=== PATIENT | female | born 1940 | race Caucasian/White ===

== ENCOUNTER 2018-10-05 14:13 | Emergency (ER) | payer MEDICARE ==
[2018-10-05] MEDS ORDERED: DIPH/PERTUSS(ACELL)/TETANUS VAC/PF 0.5 ML SYR (>=10YO) IM ONE (14:43)
--- NOTE | 2018-10-05 14:45 | ER Document Report ---
ED Medical Screen (RME) - General Chief Complaint: Fall Stated Complaint: FALL/HEAD INJURY Time Seen by Provider: 10/05/18 14:43 Information source: Patient, Relative Notes: Patient states she was attempting to step into her home carrying a laundry basket and may have tripped and fell. Patient is uncertain of the exact mechanism as she has an abrasion on the anterior aspect of her right knee but has a bump to the occipital scalp area. Patient complains of mild headache dizziness upper back pain and some right knee tenderness. Patient denies any chest pain, loss of consciousness, nausea or vomiting. I have greeted and performed a rapid initial assessment of this patient. A comprehensive ED assessment and evaluation of the patient, analysis of test results and completion of the medical decision making process will be conducted by additional ED providers. - Related Data Allergies/Adverse Reactions: ciprofloxacin [From Cipro] Allergy (Verified 10/05/18 14:28) mycins Allergy (Uncoded 10/05/18 14:28) Past Medical History - Social History Frequency of alcohol use: Occasional Drug Abuse: None - Past Medical History Cardiac Medical History: Reports: Hx Hypercholesterolemia GI Medical History: Reports: Hx Gastroesophageal Reflux Disease Past Surgical History: Reports: Hx Appendectomy, Hx Cardiac Surgery - pacemaker, valve replacement, Hx Cholecystectomy, Hx Hysterectomy, Hx Orthopedic Surgery - L knee arthroscopy, Hx Tonsillectomy Physical Exam - Vital signs Vitals: Temp Pulse Resp BP Pulse Ox 97.9 F 81 15 138/56 H 95 10/05/18 14:19 10/05/18 14:19 10/05/18 14:19 10/05/18 14:19 10/05/18 14:19 - General Notes: Tenderness to occipital scalp, upper thoracic midline tenderness, no step-off or deformity, abrasion overlying the anterior aspect of right knee Course - Vital Signs Vital signs: Temp Pulse Resp BP Pulse Ox 97.9 F 81 15 138/56 H 95 10/05/18 14:19 10/05/18 14:19 10/05/18 14:19 10/05/18 14:19 10/05/18 14:19
--- NOTE | 2018-10-05 15:31 | RADIOLOGY REPORT (SQ) ---
EXAM DESCRIPTION: CT CERVICAL SPINE WITHOUT COMPLETED DATE/TIME: 10/05/2018 3:15 pm REASON FOR STUDY: fall COMPARISON: None. TECHNIQUE: Axial images acquired through the cervical spine without intravenous contrast. Images re viewed with lung, soft tissue and bone windows. Reconstructed coronal and sagittal MPR images review ed. Images stored on PACS. All CT scanners at this facility use dose modulation, iterative reconstruction, and/or weight based d osing when appropriate to reduce radiation dose to as low as reasonably achievable (ALARA). [facility]: Dose Right [facility]: CareDose [facility]: Dose Right [facility]: Teradose 4D [facility]: [employer] RADIATION DOSE: CT Rad equipment meets quality standard of care and radiation dose reduction techniq ues were employed. CTDIvol: 18.2 mGy. DLP: 410 mGy-cm. mGy. LIMITATIONS: None. FINDINGS: ALIGNMENT: Anatomic. MINERALIZATION: Normal. VERTEBRAL BODIES: No fractures or dislocation. DISCS: Multilevel disc space narrowing with osteophytes. FACETS, LATERAL MASSES, POSTERIOR ELEMENTS: Facet arthropathy. No fractures. No dislocation. No ac sandeep findings. HARDWARE: None in the spine. VISUALIZED RIBS: No fractures. LUNG APICES AND SOFT TISSUES: No significant or acute findings. OTHER: No other significant finding. IMPRESSION: CHRONIC DEGENERATIVE CHANGES. NO ACUTE FINDINGS. TECHNICAL DOCUMENTATION: JOB ID: [id number] Quality ID # [id number]: Final reports with documentation of one or more dose reduction techniques (e.g., Au tomated exposure control, adjustment of the mA and/or kV according to patient size, use of iterative reconstruction technique) 2010 [employer]- All Rights Reserved Reading location - IP/workstation name: [email or web address]
--- NOTE | 2018-10-05 15:32 | RADIOLOGY REPORT (SQ) ---
EXAM DESCRIPTION: CT HEAD WITHOUT COMPLETED DATE/TIME: 10/05/2018 3:16 pm REASON FOR STUDY: fall COMPARISON: None. TECHNIQUE: Axial images acquired through the brain without intravenous contrast. Images reviewed wi th bone, brain and subdural windows. Additional sagittal and coronal reconstructions were generated. Images stored on PACS. All CT scanners at this facility use dose modulation, iterative reconstruction, and/or weight based d osing when appropriate to reduce radiation dose to as low as reasonably achievable (ALARA). [facility]: Dose Right [facility]: CareDose [facility]: Dose Right [facility]: Teradose 4D [facility]: [employer] RADIATION DOSE: CT Rad equipment meets quality standard of care and radiation dose reduction techniq ues were employed. CTDIvol: 53.2 mGy. DLP: 964 mGy-cm.mGy. LIMITATIONS: None. FINDINGS: VENTRICLES: Prominent. CEREBRUM: No masses. No hemorrhage. No midline shift. Areas of low density in the white matter mos t likely due to chronic micro-vascular ischemic change. No evidence for acute infarction. CEREBELLUM: No masses. No hemorrhage. No alteration of density. No evidence for acute infarction. EXTRAAXIAL SPACES: Age-related involutional change. No fluid collections. No masses. ORBITS AND GLOBE: No intra- or extraconal masses. Normal contour of globe without masses. CALVARIUM: No fracture. PARANASAL SINUSES: No fluid or mucosal thickening. SOFT TISSUES: No mass or hematoma. OTHER: No other significant finding. IMPRESSION: CHRONIC CHANGES OF ATROPHY AND MICROVASCULAR ISCHEMIA. NO ACUTE PROCESS. EVIDENCE OF ACUTE STROKE: NO. TECHNICAL DOCUMENTATION: JOB ID: [id number] Quality ID # [id number]: Final reports with documentation of one or more dose reduction techniques (e.g., Au tomated exposure control, adjustment of the mA and/or kV according to patient size, use of iterative reconstruction technique) 2010 [email or web address]- All Rights Reserved Reading location - IP/workstation name: [email or web address]
--- NOTE | 2018-10-05 15:32 | RADIOLOGY REPORT (SQ) ---
EXAM DESCRIPTION: T SPINE AP/LAT COMPLETED DATE/TIME: 10/05/2018 3:23 pm REASON FOR STUDY: fall COMPARISON: None. NUMBER OF VIEWS: Two views. TECHNIQUE: AP and lateral radiographic images acquired of the thoracic spine. LIMITATIONS: None. FINDINGS: MINERALIZATION: Normal. ALIGNMENT: Normal. No scoliosis. VERTEBRAE: No fracture or bone lesion. Maintained height, normal segmentation. DISCS: Multilevel disc space narrowing with osteophytes. HARDWARE: None in the spine. MEDIASTINUM AND SOFT TISSUES: Normal heart size and aortic contour. No soft tissue abnormality. VISUALIZED LUNG KENNEY: Clear. OTHER: No other significant finding. IMPRESSION: SPONDYLOSIS WITHOUT BONE LESION OR FRACTURE. TECHNICAL DOCUMENTATION: JOB ID: [id number] [employer]- All Rights Reserved Reading location - IP/workstation name: [email or web address]
--- NOTE | 2018-10-05 15:33 | RADIOLOGY REPORT (SQ) ---
EXAM DESCRIPTION: KNEE RIGHT 4 VIEWS COMPLETED DATE/TIME: 10/05/2018 3:23 pm REASON FOR STUDY: fall COMPARISON: None. NUMBER OF VIEWS: Four views. TECHNIQUE: AP, lateral, and both oblique radiographic images acquired of the right knee. LIMITATIONS: None. FINDINGS: MINERALIZATION: Normal. BONES: No acute fracture or dislocation. Mild medial joint space narrowing with small osteophytes. Spurring on the patella. No worrisome bone lesions. JOINT: No effusion. SOFT TISSUES: No soft tissue swelling. No radio-opaque foreign body. OTHER: No other significant finding. IMPRESSION: MILD DEGENERATIVE CHANGES. NO RADIOGRAPHIC EVIDENCE OF ACUTE INJURY. TECHNICAL DOCUMENTATION: JOB ID: [id number] [employer]- All Rights Reserved Reading location - IP/workstation name: [email or web address]
--- NOTE | 2018-10-05 16:04 | ER Document Report ---
ED General - General Chief Complaint: Fall Stated Complaint: FALL/HEAD INJURY Time Seen by Provider: 10/05/18 14:43 Primary Care Provider: JANI ORTIZ PA-C [Primary Care Provider] - Follow up as needed Notes: 77-year-old female presents emergency department complaint of a mechanical trip and fall at home. Patient was stepping up onto a step with 1 to 2 feet high, caught her flip-flop and fell backwards. Complains of some pain to the back of her head and some abrasion to the front of her right knee. Denies loss of consciousness, neck pain, back pain, numbness, tingling or weakness. Does not take any blood thinners. She does have a history of chronically herniated disc L5-S1 that is unchanged symptomatically at this point. Denies any nausea, vomiting, diarrhea. - Related Data Allergies/Adverse Reactions: ciprofloxacin [From Cipro] Allergy (Verified 10/05/18 14:28) mycins Allergy (Uncoded 10/05/18 14:28) Past Medical History - General Information source: Patient, Relative - Social History Smoking Status: Former Smoker Frequency of alcohol use: Occasional Drug Abuse: None Family History: Reviewed & Not Pertinent Patient has suicidal ideation: No Patient has homicidal ideation: No - Past Medical History Cardiac Medical History: Reports: Hx Hypercholesterolemia GI Medical History: Reports: Hx Gastroesophageal Reflux Disease Past Surgical History: Reports: Hx Appendectomy, Hx Cardiac Surgery - pacemaker, valve replacement, Hx Cholecystectomy, Hx Hysterectomy, Hx Orthopedic Surgery - L knee arthroscopy, Hx Tonsillectomy Review of Systems - Review of Systems Constitutional: No symptoms reported EENT: No symptoms reported Cardiovascular: No symptoms reported Skin: See HPI -: Yes All other systems reviewed and negative Physical Exam - Vital signs Vitals: Temp Pulse Resp BP Pulse Ox 97.9 F 81 15 138/56 H 95 10/05/18 14:19 10/05/18 14:19 10/05/18 14:19 10/05/18 14:19 10/05/18 14:19 Interpretation: Normal - Notes Notes: GENERAL: Alert, interacts well. No acute distress. HEAD: Normocephalic, small occipital hematoma, no break in the skin. No step- offs. EYES: Pupils equal, round and reactive to light, extraocular movements intact. ENT: Oral mucosa moist, tongue midline. NECK: Full range of motion, supple, trachea midline. No midline bony tenderness palpation. LUNGS: Clear to auscultation bilaterally, no wheezes, rales or rhonchi, no respiratory distress. HEART: Regular rate and rhythm, no murmurs, gallops, rubs. ABDOMEN: Soft, nontender, nondistended, bowel sounds present in all 4 quadrants. EXTREMITIES: Moves all 4 extremities spontaneously, no edema, radial and dorsalis pedis pulses 2/4 bilaterally. No cyanosis. 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 Family and patient states it is unchanged from baseline. No focal deficits. PSYCH: Normal mood, normal affect. SKIN: Warm, Dry, normal turgor, superficial abrasion to the right knee, no active bleeding. Course - Re-evaluation Re-evalutation: 10/05/18 16:06 CT scan of the head and neck are negative, x-ray of the right knee and thoracic spine are negative. No evidence of bleeding or fracture. No neurologic deficits, low risk for delayed bleed as she does not take any blood thinners or aspirin. Patient will be discharged to home. Observed by family until it is time for bed this evening. - Vital Signs Vital signs: Temp Pulse Resp BP Pulse Ox 97.9 F 81 15 138/56 H 95 10/05/18 14:19 10/05/18 14:19 10/05/18 14:19 10/05/18 14:19 10/05/18 14:19 - EKG Interpretation by Me Additional EKG results interpreted by me: 10/05/18 16:08 EKG shows atrial paced rhythm at a rate of 84, left axis deviation, normal intervals, no ST segment elevations or depressions per my interpretation. Discharge - Discharge Clinical Impression: Abrasion, right knee, initial encounter Accident due to mechanical fall without injury Qualifiers: Encounter type: initial encounter Qualified Code(s): W19.XXXA - Unspecified fall, initial encounter Fall at home Qualifiers: Encounter type: initial encounter Qualified Code(s): W19.XXXA - Unspecified fall, initial encounter; Y92.009 - Unspecified place in unspecified non- institutional (private) residence as the place of occurrence of the external cause Hematoma of occipital surface of head Qualifiers: Encounter type: initial encounter Qualified Code(s): S00.83XA - Contusion of other part of head, initial encounter Condition: Stable Disposition: HOME, SELF-CARE Additional Instructions: Head Injury Precautions At this point, there is no evidence that your head injury is serious. Observation is necessary, however. Take only clear liquids for the first few hours, unless told otherwise by the doctor. You may take acetaminophen according to the directions on the bottle. Do not take any medication that may alter your level of alertness (unless you've discussed it with the doctor first). Limit activity for the first 24 hours. During the first 12 hours, check to see approximately every two to three hours that the patient is easily arousable, responds normally, and can perform common tasks such as walking without difficulty. Contact your doctor or go to the hospital if any of the following things occur: Persistent vomiting, difficulty in arousing the patient, worsening or continued headache, or failure to improve as expected. Head injuries can cause symptoms that persist for a few days or even a few weeks. Referrals: JANI ORTIZ PA-C [Primary Care Provider] - Follow up as needed
[2018-10-05 16:18] VITALS: BP 163/89
--- NOTE | 2018-10-05 21:03 | EKG REPORT ---
SEVERITY:- ABNORMAL ECG - ATRIAL-PACED RHYTHM PROBABLE INFERIOR INFARCT, AGE INDETERMINATE : Confirmed by: Gio Thompson MD 05-Oct-2018 21:03:20
== END 2018-10-05 16:22 | disposition home or self-care (01) ==
LOC: ER 14:13
DX: S80.211A Abrasion, right knee, initial encounter (principal); S00.83XA Contusion of other part of head, initial encounter; R51 Headache; W01.0XXA Fall on same level from slipping, tripping and stumbling without subsequent striking against object, initial encounter; Y92.009 Unspecified place in unspecified non-institutional (private) residence as the place of occurrence of the external cause; Z87.891 Personal history of nicotine dependence
CPT/HCPCS: 70450; 72070; 72125; 90471; 90715; 93005; 93010; 99284

== ENCOUNTER 2019-07-22 12:32 | Emergency (ER) | payer MEDICARE ==
--- NOTE | 2019-07-22 14:04 | ER Document Report ---
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 Patient is concerned about left hand swelling due to the stent not being able to be placed in her left LCA, and thinks this is why she is now having wrist swelling. Patient states her chest pain has gone away since taking her nitro. 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 Patient is currently on Plavix for her anticoagulation therapy. Patient does report shortness of b reath but states she does have this all the time. Eating and drinking without any issues. Denies any fevers or chills. I have greeted and performed a rapid initial assessment of this patient. A co mprehensive ED assessment and evaluation of the patient, analysis of test results and completion of the medical decision making process will be conducted by additional ED providers. PHYSICAL EXAMINATION: CV: s1, s2 regular LUNGS: No respiratory distres SKIN: Warm, Dry, normal turgor, no rashes or lesions noted. Scant swelling to left wrist, noted pain on palpation. Negative snuffbox tenderness on left. - Related Data Allergies/Adverse Reactions: ciprofloxacin [From Cipro] Allergy (Verified 10/05/18 14:28) mycins Allergy (Uncoded 10/05/18 14:28) Home Medications: Lisinopril, Metoprolol, Carbidopa-Levadopa, Clonazepam, Plavix, Nitro sublingual Past Medical History - Past Medical History Cardiac Medical History: Reports: Hx Hypercholesterolemia GI Medical History: Reports: Hx Gastroesophageal Reflux Disease Past Surgical History: Reports: Hx Appendectomy, Hx Cardiac Surgery - pacemaker, valve replacement, Hx Cholecystectomy, Hx Hysterectomy, Hx Orthopedic Surgery - L knee arthroscopy, Hx Tonsillectomy Physical Exam - Vital signs Vitals: Temp Pulse Resp BP Pulse Ox 98.7 F 80 20 152/67 H 98 07/22/19 13:16 07/22/19 13:16 07/22/19 13:16 07/22/19 13:16 07/22/19 13:16 Course - Vital Signs Vital signs: Temp Pulse Resp BP Pulse Ox 98.7 F 80 20 152/67 H 98 07/22/19 13:44 07/22/19 13:16 07/22/19 13:16 07/22/19 13:16 07/22/19 13:16 Doctor's Discharge - Discharge Referrals: JANI ORTIZ PA-C [Primary Care Provider] - Follow up as needed
--- NOTE | 2019-07-22 14:42 | RADIOLOGY REPORT (SQ) ---
EXAM DESCRIPTION: WRIST LEFT 3 VIEWS IMAGES COMPLETED DATE/TIME: 07/22/2019 2:26 pm REASON FOR STUDY: left hand swelling COMPARISON: None. NUMBER OF VIEWS: Three views. TECHNIQUE: AP, lateral, and oblique radiographic images acquired of the left wrist. LIMITATIONS: None. FINDINGS: MINERALIZATION: Osteopenia. BONES: No acute fracture or dislocation. No worrisome bone lesions. Normal alignment. SOFT TISSUES: No soft tissue swelling. No foreign body. OTHER: No other significant finding. IMPRESSION: No evidence of acute osseous injury. Background of osteopenia. TECHNICAL DOCUMENTATION: JOB ID: [id number] [employer]- All Rights Reserved Reading location - IP/workstation name: [email or web address]
--- NOTE | 2019-07-22 14:42 | RADIOLOGY REPORT (SQ) ---
EXAM DESCRIPTION: CHEST SINGLE VIEW IMAGES COMPLETED DATE/TIME: 07/22/2019 2:26 pm REASON FOR STUDY: cp COMPARISON: None. EXAM PARAMETERS: NUMBER OF VIEWS: One view. TECHNIQUE: Single frontal radiographic view of the chest acquired. RADIATION DOSE: NA LIMITATIONS: None. FINDINGS: LUNGS AND PLEURA: No opacities, masses or pneumothorax. No pleural effusion. MEDIASTINUM AND HILAR STRUCTURES: No masses. Contour normal. HEART AND VASCULAR STRUCTURES: Heart normal in size. Vascular calcifications. BONES: No acute findings. HARDWARE: Left subclavian approach cardiac pacer with leads overlying right atrium and right ventricl e. Aortic valvular prosthesis. Sternotomy hardware. Cholecystectomy clips. OTHER: No other significant finding. IMPRESSION: No evidence of acute cardiopulmonary process. TECHNICAL DOCUMENTATION: JOB ID: [id number] [employer]- All Rights Reserved Reading location - IP/workstation name: [email or web address]
[2019-07-22 15:02] LABS: ABSOLUTE EOSINOPHILS # (AUTO) 0.1 10^3/uL (0.0-0.6); ABSOLUTE LYMPHOCYTES (AUTO) 1.8 10^3/uL (0.5-4.7); ABSOLUTE MONOCYTES (AUTO) 0.6 10^3/uL (0.1-1.4); BASOPHILS % (AUTO) 0.4 % (0-2); EOSINOPHILS % (AUTO) 1.4 % (0-6); HEMATOCRIT 40.1 % (36.0-47.0); HEMOGLOBIN 13.6 g/dL (12.0-15.5); INTERNATIONAL RATION (INR) 1.01; MEAN CORPUSCULAR HEMOGLOBIN 31.3 pg (27.0-33.4); MEAN CORPUSCULAR VOLUME 92 fl (80-97); MONOCYTES % (AUTO) 8.4 % (3-13); PARTIAL THROMBOPLASTIN TIME 24.9 SEC (23.5-35.8); PLATELET COUNT 221 10^3/uL (150-450); PROTHROMBIN TIME 13.3 SEC (11.4-15.4); RED BLOOD COUNT 4.35 10^6/uL (3.72-5.28); SEGMENTED NEUTROPHILS % (AUTO) 65.8 % (42-78); TOTAL CELLS COUNTED % (AUTO) 100 %; WHITE BLOOD COUNT 7.5 10^3/uL (4.0-10.5)
[2019-07-22 15:18] LABS: ALBUMIN 4.7 g/dL (3.5-5.0); ALKALINE PHOSPHATASE 80 U/L (38-126); ANION GAP 7 (5-19); ASPARTATE AMINO TRANSFERASE 22 U/L (14-36); BILIRUBIN,TOTAL 0.7 mg/dL (0.2-1.3); BLOOD UREA NITROGEN 16 mg/dL (7-20); CARBON DIOXIDE 26 mmol/L (22-30); CHLORIDE 105 mmol/L (98-107); CREATINE KINASE 80 U/L (30-135); GLUCOSE 101 mg/dL (75-110); POTASSIUM 4.6 mmol/L (3.6-5.0); TOTAL PROTEIN 7.1 g/dL (6.3-8.2)
[2019-07-22 15:30] LABS: CREATINE KINASE MB 0.83 ng/mL (<4.55)
[2019-07-22 15:34] LABS: TROPONIN I < 0.012 ng/mL
--- NOTE | 2019-07-22 18:28 | ER Document Report ---
ED General - General Chief Complaint: Chest Pain Stated Complaint: HAND PAIN Time Seen by Provider: 07/22/19 13:47 Primary Care Provider: JANI ORTIZ PA-C [Primary Care Provider] - Follow up as needed Mode of Arrival: Ambulatory Notes: 70-year-old female presents emergency department complaining of left hand pain at the base of her left thumb that is so painful that it limits the range of motion in her left hand and wrist associated with a small amount of swelling for more than the past month. She denies any weakness or numbness or tingling. States that it also causes pain in her left shoulder when she elevates her left arm to try and wash herself. Denies any radiation to her chest, denies any shortness of breath. Denies any pain between her wrist and her shoulder. Stat es that she is partially concerned because in December she had cardiac stenting performed and they tried to use a left radial approach but were unable to access from that point. Patient does note that her pain did not start until significantly after that time. She tried some Benadryl when she noticed a red spot on her hand and it improved the pain somewhat, ordered a thumb support but it has not yet arrived and has not tried Advil, Tylenol or an Kvng wrap. - Related Data Allergies/Adverse Reactions: ciprofloxacin [From Cipro] Allergy (Verified 10/05/18 14:28) mycins Allergy (Uncoded 10/05/18 14:28) Home Medications: Lisinopril, Metoprolol, Carbidopa-Levadopa, Clonazepam, Plavix, Nitro sublingual Past Medical History - General Information source: Patient - Social History Smoking Status: Former Smoker Frequency of alcohol use: daily beer with meals Drug Abuse: None Family History: Reviewed & Not Pertinent Patient has homicidal ideation: No - Past Medical History Cardiac Medical History: Reports: Hx Hypercholesterolemia GI Medical History: Reports: Hx Gastroesophageal Reflux Disease Past Surgical History: Reports: Hx Appendectomy, Hx Cardiac Surgery - pacemaker, valve replacement, Hx Cholecystectomy, Hx Hysterectomy, Hx Orthopedic Surgery - L knee arthroscopy, Hx Tonsillectomy Review of Systems - Review of Systems Constitutional: No symptoms reported Cardiovascular: No symptoms reported. denies: Chest pain, Palpitations, Heart racing, Orthopnea Respiratory: No symptoms reported Gastrointestinal: No symptoms reported Musculoskeletal: See HPI, Joint pain -: Yes All other systems reviewed and negative Physical Exam - Vital signs Vitals: Temp Pulse Resp BP Pulse Ox 98.7 F 80 20 152/67 H 98 07/22/19 13:16 07/22/19 13:16 07/22/19 13:16 07/22/19 13:16 07/22/19 13:16 Interpretation: Hypertensive - Notes Notes: GENERAL: Alert, interacts well. No acute distress. HEAD: Normocephalic, atraumatic EYES: Pupils equal, round and reactive to light, extraocular movements intact. ENT: Oral mucosa moist, tongue midline. NECK: Full range of motion, supple, trachea midline. LUNGS: Clear to auscultation bilaterally, no wheezes, rales or rhonchi, no respiratory distress. HEART: Regular rate and rhythm, no murmurs, gallops, rubs. ABDOMEN: Soft, nontender, nondistended, bowel sounds present in all 4 quadrants. EXTREMITIES: Moves all 4 extremities spontaneously, limited elevation and abduction of the left shoulder, no limited in internal rotation, some limitation of external rotation. Winces when the left shoulder is actively rotated beyond approximately 145 degrees. Left trapezius is tender to palpation with some muscle spasm, no tenderness to palpation of the left shoulder joint itself. Left wrist is mildly tenderness to palpation just distal to the distal tip of the radius, no crepitus, no erythema, minimal swelling there with no fluctuance, she is able to flex and extend the fingers on her left hand though she complains of pain. She is also able to flex, extend, pronate and supinate the left wrist and arm. Radial pulses 2/4 bilaterally. No cyanosis. NEUROLOGICAL: Alert and oriented x3, normal speech. Sensation intact across the left arm. PSYCH: Normal mood, normal affect. SKIN: Warm, Dry, no rashes or lesions noted. Course - Re-evaluation Re-evalutation: 07/22/19 18:48 CBC unremarkable, coags normal, CMP unremarkable, initial cardiac enzyme negative, repeat is pending. 07/22/19 18:49 Chest X-Ray 07/22/19 13:57 IMPRESSION: No evidence of acute cardiopulmonary process. Wrist X-Ray 07/22/19 13:58 IMPRESSION: No evidence of acute osseous injury. Background of osteopenia. Discussed with patient that reproducibility of the pain directly in her wrist and in her shoulder and with range of motion is reassuring, low suspicion for acute coronary syndrome at this time but I will wait on the second set of troponin to return. EKG is nonischemic. Discussed with patient using a Kvng wrap until her thumb support splint arrives. Also discussed using acetaminophen for pain control. Would further recommend following up with her primary care physician for investigation into this musculoskeletal pain lasting over a month. Likely related to arthritis. 07/22/19 18:53 Repeat troponin is negative as well. Discharged home. - Vital Signs Vital signs: Temp Pulse Resp BP Pulse Ox 98.7 F 80 20 152/67 H 98 07/22/19 13:44 07/22/19 13:16 07/22/19 13:16 07/22/19 13:16 07/22/19 13:16 - Laboratory Result Diagrams: 07/22/19 14:26 07/22/19 14:26 - EKG Interpretation by Me Additional EKG results interpreted by me: 07/22/19 18:28 Atrial paced at a rate of 67, interventricular conduction delay, left axis deviation, no ST segment elevations or depressions, significant artifact in V5, no T wave inversions per my interpretation. Procedures - Immobilization Left Wrist Immobilizer type: Kvng wrap Performed by: PCT Post-Proc Neuro Vasc Exam: Normal, Unchanged from pre-exam Alignment checked and good: Yes Discharge - Discharge Clinical Impression: Chronic pain of left wrist, Strain of cervical portion of left trapezius muscle Condition: Stable Disposition: HOME, SELF-CARE Additional Instructions: Please use ibuprofen (Motrin or Advil) 400 mg every 8 hours as needed for pain for the next 3 to 4 days. If you need it longer than that please see your primary care physician. You may also use acetaminophen (Tylenol) 1000 mg every 4-6 hours as needed for pain. Please be aware that many medications contain acetaminophen, do not exceed a total of 1000 mg of acetaminophen every 6 hours. The pain that you have is reproducible on exam. Your laboratory studies do not show any evidence of a heart attack at this time. Your x-ray does not show any break in your wrist. Your pain appears to be coming from a combination of arthritis in your wrist and a muscle spasm in your left shoulder. I suggest continuing to wear the Kvng wrap for comfort around your left wrist until your thumb support splint arrives. Return for pain that goes into your chest, comes on with exercise, because of shortness of breath, or weakness or numbness in your arm. Referrals: JANI ORTIZ PA-C [Primary Care Provider] - Follow up as needed
[2019-07-22 18:59] VITALS: BP 164/86
--- NOTE | 2019-07-22 20:04 | EKG REPORT ---
SEVERITY:- ABNORMAL ECG - ATRIAL-PACED COMPLEXES RAA, CONSIDER BIATRIAL ABNORMALITIES LEFT AXIS DEVIATION MINIMAL ST DEPRESSION, INFERIOR LEADS : Confirmed by: Gio Thompson MD 22-Jul-2019 20:03:00
== END 2019-07-22 19:06 | disposition home or self-care (01) ==
LOC: ER 12:32
DX: M25.532 Pain in left wrist (principal); G89.29 Other chronic pain; S29.012A Strain of muscle and tendon of back wall of thorax, initial encounter; X58.XXXA Exposure to other specified factors, initial encounter; I45.9 Conduction disorder, unspecified; M85.88 Other specified disorders of bone density and structure, other site; M62.830 Muscle spasm of back; M25.512 Pain in left shoulder; Z95.5 Presence of coronary angioplasty implant and graft; Z79.899 Other long term (current) drug therapy; Z79.02 Long term (current) use of antithrombotics/antiplatelets; Z87.891 Personal history of nicotine dependence
CPT/HCPCS: 36415; 71045; 80053; 82550; 82553; 84484; 85025; 85610; 85730; 93005; 93010; 99284

== ENCOUNTER → 2019-08-21 | Outpatient (CLI) | payer MEDICARE ==
--- NOTE | 2019-08-21 13:59 | RADIOLOGY REPORT (SQ) ---
EXAM DESCRIPTION: CT LT UPPER EXTREMITY WITHOUT IMAGES COMPLETED DATE/TIME: 08/21/2019 1:37 pm REASON FOR STUDY: PAIN IN LEFT WRIST (M25.532) COMPARISON: None. TECHNIQUE: Axial imaging performed through the Left wrist with reformatted coronal and sagittal imaging windowed for bone and soft tissues. Images saved to PAC S. 3D IMAGING: Were 3D images as MIP, SSD, or volume rendering performed at the work station? No LIMITATIONS: Motion artifact. FINDINGS: SOFT TISSUES: No obvious swelling or foreign body. BONY STRUCTURES: Osteopenia. No fracture or dislocation. 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 MINERALIZATION: Osteopenia. OTHER: No other significant finding. IMPRESSION: Osteoarthritis. No acute findings. Reading location - IP/workstation name: [email or web address]
--- NOTE | 2019-08-21 14:42 | RADIOLOGY REPORT (SQ) ---
EXAM DESCRIPTION: CERV SP 4 OR 5 VIEWS IMAGES COMPLETED DATE/TIME: 08/21/2019 1:45 pm REASON FOR STUDY: CERVICALGIA (M54.2) M25.532 PAIN IN LEFT WRIST COMPARISON: None. NUMBER OF VIEWS: Five views including obliques. TECHNIQUE: AP, lateral, obliques and odontoid radiographic images acquired of the cervical spine. LIMITATIONS: None. FINDINGS: MINERALIZATION: Normal. ALIGNMENT: Normal. VERTEBRAE: Maintained height. No fracture or worrisome bone lesion. DISCS: Multilevel disc space narrowing with osteophytes, most pronounced in the mid and lower cervica l spine. POSTERIOR ELEMENTS: Pedicles and facets are intact. No posterior arch defects. Facet arthropathy is present. FORAMINA: Narrowed at the levels of maximal disc and facet disease. HARDWARE: None in the spine. PARASPINAL SOFT TISSUES: Normal. OTHER: No other significant finding. IMPRESSION: SPONDYLOSIS WITHOUT BONE LESION OR FRACTURE. TECHNICAL DOCUMENTATION: JOB ID: [id number] 2010 [employer]- All Rights Reserved Reading location - IP/workstation name: [email or web address]
== END ==
LOC: RAD 13:04
PROVIDERS: ATTEND Physician Assistant
DX: M47.812 Spondylosis without myelopathy or radiculopathy, cervical region (principal); M54.2 Cervicalgia; M19.032 Primary osteoarthritis, left wrist
CPT/HCPCS: 72050